=== PATIENT | female | born 1950 | race Caucasian/White ===

== ENCOUNTER 2017-02-06 08:33 | Emergency (ER) | payer MEDICARE, OTHER ==
[~2017-02-06] VITALS: Ht 157.5 cm; Wt 70.0 kg
[~2017-02-06 08:33] MED LIST: ENAL5TAB PO; METF500T7 PO
[2017-02-06 08:42] LABS: GLUCOSE,POINT OF CARE 194 MG/DL (70-110)
[2017-02-06 10:00] VITALS: BP 122/68
[2017-02-06] MEDS ORDERED: ACETAMINOPHEN 500 MG TABLET PO ONE (10:30)
== END 2017-02-06 13:38 | disposition home or self-care (01) ==
LOC: EMS 08:38
DX: S80.02XA Contusion of left knee, initial encounter (principal); S70.311A Abrasion, right thigh, initial encounter; S50.811A Abrasion of right forearm, initial encounter; M19.90 Unspecified osteoarthritis, unspecified site; E11.9 Type 2 diabetes mellitus without complications; E78.00 Pure hypercholesterolemia, unspecified; I10 Essential (primary) hypertension; Z88.5 Allergy status to narcotic agent; Z88.6 Allergy status to analgesic agent; W10.9XXA Fall (on) (from) unspecified stairs and steps, initial encounter; Y93.01 Activity, walking, marching and hiking; Y92.89 Other specified places as the place of occurrence of the external cause; Y99.8 Other external cause status
CPT/HCPCS: 29505; 73502; 82962; 93005; 99284